=== PATIENT | male | born 1980 | race Caucasian/White ===

== ENCOUNTER 2021-12-24 12:59 | Emergency (ER) | payer OTHER ==
[2021-12-24 13:17] VITALS: TEMP 97.8
[2021-12-24] MEDS ORDERED: KETOROLAC 15 MG/ML 1 ML VIAL IVP STA (13:48)
[2021-12-24] MEDS ORDERED: SODIUM CHLORIDE 0.9% 1,000 ML IV STA (13:48)
[2021-12-24] MEDS ORDERED: MORPHINE SULFATE 2 MG/ML SYRINGE IVP STA (13:48)
--- NOTE | 2021-12-24 14:11 | ED ---
Abdominal Pain HPI - General Chief Complaint: Abdominal Pain Stated Complaint: abd pain Time Seen by Provider: 12/24/21 13:31 Source: patient, RN notes reviewed Mode of arrival: ambulatory Limitations: no limitations - History of Present Illness Initial Comments: This is a 41-year-old male who presents to the emergency department for abdominal pain. Abdominal pain has been present for approximately one week. He does believe that the pain may worsen with eating. He has had intermittent associated nausea, vomiting, and diarrhea. The pain is described as being across the center of his abdomen. He did have an episode of vomiting this morning, and believes that there may have been blood in it. He has never had symptoms like this in the past, and states that it has gotten to the point where he is in tears. He also feels very fatigued as a result of all of his symptoms. Denies any fevers, chills, sore throat, cough, dyspnea, chest pain, palpitations, back pain, or headaches. MD Complaint: abdominal pain Onset/Timin -: week(s) Location: periumbilical - Related Data Home Medications Medication Instructions Recorded Confirmed Dextroamphetamine/Amphetamine 10 mg PO TID 12/24/21 12/24/21 [Adderall] HYDROcodone/APAP 10-325MG [[place] 1 tab PO 5XD PRN 12/24/21 12/24/21 10-325] Ibuprofen [Motrin] 800 mg PO TID PRN 12/24/21 12/24/21 Previous Rx's Medication Instructions Recorded Famotidine [Zantac-360 10 mg PO QAM #20 tablet 12/24/21 (Famotidine)] Metoclopramide [Reglan] 5 mg PO ACHS PRN #20 tab 12/24/21 Ondansetron Odt [Zofran Odt] 4 mg PO Q8HR PRN #20 tab 12/24/21 Allergies Allergy/AdvReac Type Severity Reaction Status Date / Time No Known Allergies Allergy Verified 12/24/21 14:57 Review of Systems ROS Statement: Those systems with pertinent positive or pertinent negative responses have been documented in the HPI. ROS Other: All systems not noted in ROS Statement are negative. Past Medical History Past Medical History: No Reported History History of Any Multi-Drug Resistant Organisms: None Reported Past Surgical History: No Surgical Hx Reported Past Psychological History: No Psychological Hx Reported Smoking Status: Current every day smoker Past Alcohol Use History: None Reported Past Drug Use History: None Reported General Exam Limitations: no limitations General appearance: alert, in distress Head exam: Present: atraumatic, normocephalic, normal inspection ENT exam: Present: normal exam, mucous membranes moist Neck exam: Present: normal inspection. Absent: tenderness, meningismus, lymphadenopathy Respiratory exam: Present: normal lung sounds bilaterally. Absent: respiratory distress, wheezes, rales, rhonchi, stridor Cardiovascular Exam: Present: regular rate, normal rhythm, normal heart sounds. Absent: systolic murmur, diastolic murmur, rubs, gallop, clicks GI/Abdominal exam: Present: soft, tenderness (Epigastric, periumbilical ), normal bowel sounds. Absent: distended, guarding, rebound, rigid Neurological exam: Present: alert, oriented X3, CN II-XII intact Psychiatric exam: Present: normal affect, normal mood Skin exam: Present: warm, dry, intact, normal color. Absent: rash Course Vital Signs 12/24/21 12/24/21 12/24/21 13:15 16:33 18:03 Temperature 97.8 F Pulse Rate 76 72 68 Respiratory 16 18 18 Rate Blood Pressure 152/101 141/90 132/92 O2 Sat by Pulse 97 98 98 Oximetry Medical Decision Making - Medical Decision Making This is a 41-year-old male who presents to the emergency department for abdominal pain. Lab work was unremarkable. Symptoms initially improved with Toradol and morphine, however they returned an hour and a half later. Given the patient's duration of symptoms and exquisite tenderness, computed tomography scan of the abdomen and pelvis was obtained. This revealed constipation. Patient was given lactulose and Reglan. Advised the patient that symptoms are related to constipation and possible gastritis/GERD. Prescription for famotidine provided. Advised to take this daily for 2 weeks. Zofran and Reglan prescribed as well. Instructed him to take the Reglan whenever he experiences abdominal pain, and to otherwise take either Reglan or Zofran for nausea and vomiting. Also advised to increase fluid and fiber intake and to take OTC MiraLAX for constipation. Return precautions reviewed in depth, the patient is instructed to return to the emergency department with any new, worsening, or concerning symptoms. Patient verbalized understanding. This case was discussed in detail with the attending ED physician. Presentation, findings, and treatment plan discussed in detail as well. - Lab Data Result diagrams: 12/24/21 Unknown 12/24/21 Unknown Lab Results 12/24/21 12/24/21 12/24/21 Range/Units Unknown Unknown Unknown WBC 9.5 (3.8-10.6) k/uL RBC 4.86 (4.30-5.90) m/uL Hgb 16.3 (13.0-17.5) gm/dL Hct 48.3 (39.0-53.0) % MCV 99.4 (80.0-100.0) fL MCH 33.5 (25.0-35.0) pg MCHC 33.7 (31.0-37.0) g/dL RDW 12.5 (11.5-15.5) % Plt Count 336 (150-450) k/uL MPV 7.8 Neutrophils % 78 % Lymphocytes % 14 % Monocytes % 5 % Eosinophils % 2 % Basophils % 0 % Neutrophils # 7.4 (1.3-7.7) k/uL Lymphocytes # 1.3 (1.0-4.8) k/uL Monocytes # 0.5 (0-1.0) k/uL Eosinophils # 0.2 (0-0.7) k/uL Basophils # 0.0 (0-0.2) k/uL Sodium 139 (137-145) mmol/L Potassium 4.3 (3.5-5.1) mmol/L Chloride 107 (98-107) mmol/L Carbon Dioxide 24 (22-30) mmol/L Anion Gap 8 mmol/L BUN 10 (9-20) mg/dL Creatinine 0.92 (0.66-1.25) mg/dL Est GFR (CKD-EPI)AfAm >90 (>60 ml/min/1.73 sqM) Est GFR (CKD-EPI)NonAf >90 (>60 ml/min/1.73 sqM) Glucose 118 H (74-99) mg/dL Calcium 9.6 (8.4-10.2) mg/dL Total Bilirubin 0.3 (0.2-1.3) mg/dL AST 20 (17-59) U/L ALT 14 (4-49) U/L Alkaline Phosphatase 88 (38-126) U/L Troponin I (0.000-0.034) ng/mL Total Protein 7.0 (6.3-8.2) g/dL Albumin 4.5 (3.5-5.0) g/dL Amylase 39 (30-110) U/L Lipase 62 (23-300) U/L Urine Color Yellow Urine Appearance Clear (Clear) Urine pH 6.0 (5.0-8.0) Ur Specific [place] 1.015 (1.001-1.035) Urine Protein Negative (Negative) Urine Glucose (UA) Negative (Negative) Urine Ketones Negative (Negative) Urine Blood Negative (Negative) Urine Nitrite Negative (Negative) Urine Bilirubin Negative (Negative) Urine Urobilinogen <2.0 (<2.0) mg/dL Ur Leukocyte Esterase Trace H (Negative) Urine RBC 2 (0-5) /hpf Urine WBC 6 H (0-5) /hpf Urine Mucus Rare H (None) /hpf Coronavirus (PCR) (Not Detectd) Influenza Type A RNA (Not Detectd) Influenza Type B (PCR) (Not Detectd) 12/24/21 12/24/21 12/24/21 Range/Units Unknown Unknown Unknown WBC (3.8-10.6) k/uL RBC (4.30-5.90) m/uL Hgb (13.0-17.5) gm/dL Hct (39.0-53.0) % MCV (80.0-100.0) fL MCH (25.0-35.0) pg MCHC (31.0-37.0) g/dL RDW (11.5-15.5) % Plt Count (150-450) k/uL MPV Neutrophils % % Lymphocytes % % Monocytes % % Eosinophils % % Basophils % % Neutrophils # (1.3-7.7) k/uL Lymphocytes # (1.0-4.8) k/uL Monocytes # (0-1.0) k/uL Eosinophils # (0-0.7) k/uL Basophils # (0-0.2) k/uL Sodium (137-145) mmol/L Potassium (3.5-5.1) mmol/L Chloride (98-107) mmol/L Carbon Dioxide (22-30) mmol/L Anion Gap mmol/L BUN (9-20) mg/dL Creatinine (0.66-1.25) mg/dL Est GFR (CKD-EPI)AfAm (>60 ml/min/1.73 sqM) Est GFR (CKD-EPI)NonAf (>60 ml/min/1.73 sqM) Glucose (74-99) mg/dL Calcium (8.4-10.2) mg/dL Total Bilirubin (0.2-1.3) mg/dL AST (17-59) U/L ALT (4-49) U/L Alkaline Phosphatase (38-126) U/L Troponin I <0.012 (0.000-0.034) ng/mL Total Protein (6.3-8.2) g/dL Albumin (3.5-5.0) g/dL Amylase (30-110) U/L Lipase (23-300) U/L Urine Color Urine Appearance (Clear) Urine pH (5.0-8.0) Ur Specific [place] (1.001-1.035) Urine Protein (Negative) Urine Glucose (UA) (Negative) Urine Ketones (Negative) Urine Blood (Negative) Urine Nitrite (Negative) Urine Bilirubin (Negative) Urine Urobilinogen (<2.0) mg/dL Ur Leukocyte Esterase (Negative) Urine RBC (0-5) /hpf Urine WBC (0-5) /hpf Urine Mucus (None) /hpf Coronavirus (PCR) Not Detected (Not Detectd) Influenza Type A RNA Not Detected (Not Detectd) Influenza Type B (PCR) Not Detected (Not Detectd) - Radiology Data Radiology results: report reviewed, image reviewed Disposition Clinical Impression: Abdominal pain of unknown etiology Disposition: HOME SELF-CARE Instructions (If sedation given, give patient instructions): Abdominal Pain (ED) Additional Instructions: Return to the emergency department with any new, worsening, or concerning symptoms. Take the Zantac every morning for 2 weeks. If you have nausea and vomiting take the Zofran or Reglan, and when you have abdominal pain take the Reglan. Increase dietary fiber and remain well hydrated. Contact gastroenterology as listed below for follow-up appointment if symptoms do not improve. Prescriptions: Metoclopramide [Reglan] 5 mg PO ACHS PRN #20 tab PRN Reason: Nausea And Vomiting Famotidine [Zantac-360 (Famotidine)] 10 mg PO QAM #20 tablet Ondansetron Odt [Zofran Odt] 4 mg PO Q8HR PRN #20 tab PRN Reason: Nausea And Vomiting Is patient prescribed a controlled substance at d/c from ED?: No Referrals: None,Stated [Primary Care Provider] - 1-2 days Maria Victoria Bajwa MD [STAFF PHYSICIAN] - 1-2 days
[2021-12-24 14:44] LABS: Basophils % (A) 0 %; Eosinophils # (A) 0.2 k/uL (0-0.7); Eosinophils % (A) 2 %; HCT 48.3 % (39.0-53.0); HGB 16.3 gm/dL (13.0-17.5); Lymphocytes # (A) 1.3 k/uL (1.0-4.8); Lymphocytes % (A) 14 %; MCH 33.5 pg (25.0-35.0); MCHC 33.7 g/dL (31.0-37.0); MCV 99.4 fL (80.0-100.0); Mean Platelet Volume 7.8; Monocytes # (A) 0.5 k/uL (0-1.0); Monocytes % (A) 5 %; Neutrophils # (A) 7.4 k/uL (1.3-7.7); Neutrophils % (A) 78 %; Platelet Count 336 k/uL (150-450); RBC 4.86 m/uL (4.30-5.90); RDW 12.5 % (11.5-15.5); WBC 9.5 k/uL (3.8-10.6)
[2021-12-24 14:55] LABS: ALT 14 U/L (4-49); AST 20 U/L (17-59); African American GFR (CKD) >90 (>60 ml/min/1.73 sqM); Albumin 4.5 g/dL (3.5-5.0); Alkaline Phosphatase 88 U/L (38-126); Amylase 39 U/L (30-110); Anion Gap 8 mmol/L; Blood Urea Nitrogen 10 mg/dL (9-20); Calcium 9.6 mg/dL (8.4-10.2); Carbon Dioxide 24 mmol/L (22-30); Chloride 107 mmol/L (98-107); Glucose 118 mg/dL (74-99); Lipase 62 U/L (23-300); Non-African American GFR(CKD) >90 (>60 ml/min/1.73 sqM); Potassium 4.3 mmol/L (3.5-5.1); Sodium 139 mmol/L (137-145); Total Bilirubin 0.3 mg/dL (0.2-1.3)
[2021-12-24 15:10] LABS: Appearance,Urine Clear (Clear); Bilirubin,Urine Negative (Negative); Blood,Urine Negative (Negative); Color,Urine Yellow; Glucose,Urine (UA) Negative (Negative); Ketones,Urine Negative (Negative); Leukocyte Esterase,Urine Trace (Negative); Mucus,Urine Rare /hpf; Nitrite,Urine Negative (Negative); Protein,Urine Negative (Negative); RBC,Urine 2 /hpf (0-5); Specific Gravity,Urine 1.015 (1.001-1.035); Urobilinogen,Urine <2.0 mg/dL (<2.0); WBC,Urine 6 /hpf (0-5)
--- NOTE | 2021-12-24 15:37 | CT ---
EXAMINATION TYPE: CT abdomen pelvis w con DATE OF EXAM: 12/24/2021 COMPARISON: None available HISTORY: abdominal pain CT DLP: 718.2 mGycm Automated exposure control for dose reduction was used. TECHNIQUE: Helical acquisition of images was performed from the lung bases through the pelvis. CONTRAST: Performed without Oral Contrast and with IV Contrast, patient injected with 100 mL of Isovue 300. FINDINGS: LUNG BASES: No significant abnormality is appreciated. LIVER/GB: No significant abnormality is appreciated. PANCREAS: No significant abnormality is seen. SPLEEN: No significant abnormality is seen. ADRENALS: No significant abnormality is seen. KIDNEYS: Bilateral nonobstructing renal calculi measuring up to 3 mm on the right side and 4 mm on th e left side. No hydroureter or hydronephrosis. FREE AIR: No free air is visualized. RETROPERITONEAL ADENOPATHY: None visualized REPRODUCTIVE ORGANS: No significant abnormality is seen URINARY BLADDER: Nondistended. PELVIC ADENOPATHY: No pathologically enlarged pelvic lymph nodes. OSSEOUS STRUCTURES: No gross aggressive bone lesion. BOWEL: Unremarkable nondistended stomach and duodenum. Suboptimal assessment of the small and large bowel. No evidence for small bowel obstruction. Fecal loading of the colon. Normal appendix. OTHER: Unremarkable abdominal aorta. Retroaortic left renal vein. No sizable free fluid. IMPRESSION: Bilateral nonobstructing renal calculi. Fecal loading of the colon. No other definite acute abnormali ty seen in the abdomen or the pelvis.
[2021-12-24] MEDS ORDERED: METOCLOPRAMIDE 5 MG/ML 2 ML VIAL IVP STA (16:01)
[2021-12-24] MEDS ORDERED: LACTULOSE 20 GM/30 ML CUP PO ONE (16:01)
[2021-12-24 16:34] VITALS: RESP 18
[2021-12-24 18:04] VITALS: BP 132/92; PULSE 68
== END 2021-12-24 18:04 | disposition home or self-care (01) ==
LOC: EC 12:59
DX: R10.13 Epigastric pain (principal); R10.33 Periumbilical pain; Z20.822 Contact with and (suspected) exposure to COVID-19; F17.200 Nicotine dependence, unspecified, uncomplicated
CPT/HCPCS: 99284; 96374; 96375 ×2; 96361 ×3; 36415; 80053; 82150; 83690; 84484; 85025; 81001; 87502; 87635; 74177; J2765; J2270; J1885; Q9967

== ENCOUNTER 2024-12-08 14:37 | Emergency (ER) | payer OTHER ==
[2024-12-08 14:48] VITALS: TEMP 98.3
[2024-12-08] MEDS: DEXAMETHASONE SOD PHOSPHATE 10 MG/ML 1 ML VIAL IVP STA (16:47)
[2024-12-08] MEDS: METOCLOPRAMIDE 5 MG/ML 2 ML VIAL IVP STA (16:47)
[2024-12-08] MEDS: diphenhydrAMINE 50 MG/ML 1 ML VIAL IVP STA (16:47)
[2024-12-08] MEDS: SODIUM CHLORIDE 0.9% 1,000 ML IV STA (16:47)
[2024-12-08] MEDS: MAGNESIUM SULFATE-D5W PMX 1 GM in DEXTROSE/WATER 1 100ML.BAG IVPB ONE (16:48)
[2024-12-08 16:51] VITALS: RESP 17
[2024-12-08 16:57] LABS: Basophils # (A) 0.07 10*3/uL (0.00-0.10); Basophils % (A) 0.9 %; Eosinophils # (A) 0.09 10*3/uL (0.04-0.35); Eosinophils % (A) 1.2 %; HCT 44.6 % (39.6-50.0); HGB 15.7 g/dL (13.0-17.0); Lymphocytes # (A) 2.26 10*3/uL (0.90-5.00); Lymphocytes % (A) 30.5 %; MCH 31.5 pg (27.0-32.0); MCHC 35.2 g/dL (32.0-37.0); MCV 89.4 fL (80.0-97.0); Monocytes # (A) 0.66 10*3/uL (0.20-1.00); Monocytes % (A) 8.9 %; Neutrophils % (A) 58.1 %; Platelet Count 338 10*3/uL (140-440); RBC 4.99 10*6/uL (4.40-5.60); RDW 11.9 % (11.5-14.5); WBC 7.41 10*3/uL (4.50-10.00)
[2024-12-08 17:12] LABS: ALT 45 U/L (4-49); AST 30 U/L (17-59); African American GFR (CKD) >90 (>60 ml/min/1.73 sqM); Albumin 4.8 g/dL (3.5-5.0); Alkaline Phosphatase 86 U/L (38-126); Anion Gap 8 mmol/L; Blood Urea Nitrogen 14 mg/dL (9-20); Calcium 9.6 mg/dL (8.4-10.2); Carbon Dioxide 29 mmol/L (22-30); Chloride 103 mmol/L (98-107); Glucose 95 mg/dL (74-99); Non-African American GFR(CKD) 87 (>60 ml/min/1.73 sqM); Potassium 4.2 mmol/L (3.5-5.1); Sodium 140 mmol/L (137-145); Total Bilirubin 0.5 mg/dL (0.2-1.3); Total Protein 7.3 g/dL (6.3-8.2)
--- NOTE | 2024-12-08 17:41 | CT ---
EXAMINATION TYPE: CT brain wo con DATE OF EXAM: 12/08/2024 5:06 PM COMPARISON: None. CLINICAL INDICATION: Male, 44 years old with history of Headache, HEADACHE TECHNIQUE: Brain: Axial CT images of the brain were obtained with coronal and sagittal reformats created and rev iewed. Contrast used: None. Oral contrast used: None. CT DLP: 1240.4 mGycm, Automated exposure control for dose reduction was used. FINDINGS: Brain: Extra-axial spaces: No abnormal extra-axial fluid collections. Ventricular system: Within normal limits Cerebral parenchyma: No acute intraparenchymal hemorrhage or mass effect. The kimbrough-white junction is well differentiated. Cerebellum: Unremarkable. Mass effect: No evidence of midline shift. Intracranial vasculature: unremarkable Soft tissues: Normal. Calvarium/osseous structures: No depressed skull fracture. Paranasal sinuses and mastoid air cells: Mild scattered paranasal sinus disease. Visualized orbits: Orbital contents are intact. IMPRESSION: No acute intracranial process. [facility], , 12/08/2024 5:38 PM
--- NOTE | 2024-12-08 17:46 | ED ---
Headache HPI - General Chief Complaint: Headache Stated Complaint: Abn BP Time Seen by Provider: 12/08/24 14:50 Mode of arrival: ambulatory Limitations: no limitations - History of Present Illness Initial Comments: 44-year-old male with no reported past medical history who presents to the emergency department after he has had a headache for the past 10 days. States i ts located on the right temporal region and behind his right eye. He denies any visual disturbance. No fevers. No head injury. Denies neck stiffness. He went into his primary care and they found that he had significant elevated blood pressures and therefore sent him to the hospital. He denies any lateralizing weakness. No speech difficulties. No other alleviating, precipitating or modifying factors - Related Data Home Medications Medication Instructions Recorded Confirmed Dextroamphetamine/Amphetamine 10 mg PO TID 12/24/21 12/24/21 [Adderall] HYDROcodone/APAP 10-325MG [[place] 1 tab PO 5XD PRN 12/24/21 12/24/21 10-325] Ibuprofen [Motrin] 800 mg PO TID PRN 12/24/21 12/24/21 Previous Rx's Medication Instructions Recorded Famotidine [Zantac-360 10 mg PO QAM #20 tablet 12/24/21 (Famotidine)] Metoclopramide [Reglan] 5 mg PO ACHS PRN #20 tab 12/24/21 Ondansetron Odt [Zofran Odt] 4 mg PO Q8HR PRN #20 tab 12/24/21 amLODIPine [Norvasc] 5 mg PO DAILY #30 tab 12/08/24 Allergies Allergy/AdvReac Type Severity Reaction Status Date / Time No Known Allergies Allergy Verified 12/24/21 14:57 Review of Systems ROS Statement: Those systems with pertinent positive or pertinent negative responses have been documented in the HPI. ROS Other: All systems not noted in ROS Statement are negative. Past Medical History Past Medical History: No Reported History History of Any Multi-Drug Resistant Organisms: None Reported Past Surgical History: No Surgical Hx Reported, Adenoidectomy, Hernia Repair, Tonsillectomy Past Psychological History: No Psychological Hx Reported, ADD/ADHD Smoking Status: Current every day smoker Past Alcohol Use History: None Reported Past Drug Use History: None Reported General Exam Limitations: no limitations General appearance: alert, in no apparent distress Head exam: Present: atraumatic, normocephalic, normal inspection Eye exam: Present: normal appearance, PERRL, EOMI. Absent: scleral icterus, conjunctival injection, periorbital swelling ENT exam: Present: normal exam, mucous membranes moist Neck exam: Present: normal inspection. Absent: tenderness, meningismus, lymphadenopathy Respiratory exam: Present: normal lung sounds bilaterally. Absent: respiratory distress, wheezes, rales, rhonchi, stridor Cardiovascular Exam: Present: regular rate, normal rhythm, normal heart sounds. Absent: systolic murmur, diastolic murmur, rubs, gallop, clicks GI/Abdominal exam: Present: soft, normal bowel sounds. Absent: distended, tenderness, guarding, rebound, rigid Extremities exam: Present: normal inspection, full ROM, normal capillary refill. Absent: tenderness, pedal edema, joint swelling, calf tenderness Back exam: Present: normal inspection Neurological exam: Present: alert, oriented X3, CN II-XII intact Psychiatric exam: Present: normal affect, normal mood Skin exam: Present: warm, dry, intact, normal color. Absent: rash Course Vital Signs 12/08/24 12/08/24 12/08/24 14:45 16:50 18:00 Temperature 98.3 F Pulse Rate 74 64 66 Respiratory 16 17 17 Rate Blood Pressure 213/136 210/138 183/132 O2 Sat by Pulse 98 98 100 Oximetry 12/08/24 18:21 Temperature Pulse Rate 70 Respiratory 17 Rate Blood Pressure 167/114 O2 Sat by Pulse 100 Oximetry Medical Decision Making - Medical Decision Making Was pt. sent in by a medical professional or institution (Dr. PA, PINION SORTER, urgent care, hospital, or skilled nursing...) When possible be specific @ -Patient sent in from his primary care office Did you speak to anyone other than the patient for history (EMS, parent, family, police, friend...)? What history was obtained from this source @ -No Did you review nursing and triage notes (agree or disagree)? Why? @ -I reviewed and agree with nursing and triage notes Were old charts reviewed (outside hosp., previous admission, EMS record, old EKG, old radiological studies, urgent care reports/EKG's, skilled nursing records)? Report findings @ -No old charts were reviewed Differential Diagnosis (chest pain, altered mental status, abdominal pain women, abdominal pain men, vaginal bleeding, weakness, fever, dyspnea, syncope, headache, dizziness, GI bleed, back pain, seizure, CVA, palpatations, mental health, musculoskeletal)? @ -Differential Headache: Migraine, tension, cluster, carbon monoxide, central venous thrombosis, pension karma temporal arteritis, acute closure glaucoma, intercranial hemorrhage, mastoiditis, sinusitis, head injury, this is not meant to be an all-inclusive list. EKG interpreted by me (3pts min.). @ -Yes and demonstrates sinus bradycardia with a rate of 59. NH interval 150. QRS 92. QTc 397. No acute ST segment elevations or depressions X-rays interpreted by me (1pt min.). @ -None done CT interpreted by me (1pt min.). @ -Yes which demonstrates no acute process U/S interpreted by me (1pt. min.). @ -None done What testing was considered but not performed or refused? (CT, X-rays, U/S, labs)? Why? @ -None What meds were considered but not given or refused? Why? @ -None Did you discuss the management of the patient with other professionals (professionals i.e. , PA, [facility] SORTER, lab, RT, psych nurse, social science teacher, websphere portal architect, teacher, interface control officer, corrections caseworker)? Give summary @ -No Was smoking cessation discussed for >3mins.? @ -No Was critical care preformed (if so, how long)? @ -No Were there social determinants of health that impacted care today? How? (Homelessness, low income, unemployed, alcoholism, drug addiction, transportation, low edu. Level, literacy, decrease access to med. care, [facility], rehab)? @ -No Was there de-escalation of care discussed even if they declined (Discuss DNR or withdrawal of care, Hospice)? DNR status @ -No What co-morbidities impacted this encounter? (DM, HTN, Smoking, COPD, CAD, Cancer, CVA, ARF, Chemo, Hep., AIDS, mental health diagnosis, sleep apnea, morbi d obesity)? @ -None Was patient admitted / discharged? Hospital course, mention meds given and rout e, prescriptions, significant lab abnormalities, going to OR and other pertinent info. @ -Upon arrival patient seen and evaluated in bed 30. Thorough history and physical exam was performed. IV access was established. Laboratory studies are conducted. Patient was given migraine cocktail as well as hydralazine for blood pressure control. CT is negative. Patient reevaluated and reports that h is symptoms are improved. He has no temporal tenderness to palpation. No visual disturbance. Patient will be initiated on blood pressure medications at home. He is to buy a blood pressure cuff, measure his blood pressure 3 times a day and keep a log. He is to start taking the amlodipine if his blood pressure remains over 160/90 at home. He needs to follow-up with his doctor to ensure that the blood pressure medication he is on is working and is the correct dose. Return for any new or worsening symptoms. Patient agreeable to plan he was discharged in stable condition Undiagnosed new problem with uncertain prognosis? @ -No Drug Therapy requiring intensive monitoring for toxicity (Heparin, Nitro, Insulin, Cardizem)? @ -No Were any procedures done? @ -No Diagnosis/symptom? @ -Acute migraine, accelerated hypertension Acute, or Chronic, or Acute on Chronic? @ -Acute Uncomplicated (without systemic symptoms) or Complicated (systemic symptoms)? @ -Complicated Side effects of treatment? @ -No Exacerbation, Progression, or Severe Exacerbation? @ -No Poses a threat to life or bodily function? How? (Chest pain, [place], [place], pneumonia, PE, COPD, DKA, ARF, appy, cholecystitis, CVA, Diverticulitis, Homicidal, Suicidal, threat to staff... and all critical care pts) @ -No - Lab Data Result diagrams: 12/08/24 16:46 12/08/24 16:46 Lab Results 12/08/24 12/08/24 12/08/24 Range/Units 16:46 16:46 16:46 WBC 7.41 (4.50-10.00) 10*3/uL RBC 4.99 (4.40-5.60) 10*6/uL Hgb 15.7 (13.0-17.0) g/dL Hct 44.6 (39.6-50.0) % MCV 89.4 (80.0-97.0) fL MCH 31.5 (27.0-32.0) pg MCHC 35.2 (32.0-37.0) g/dL Plt Count 338 (140-440) 10*3/uL MPV 10.0 (9.5-12.2) fL Immature Gran % (Auto) 0.4 % Neutrophils % 58.1 % Lymphocytes % 30.5 % Monocytes % 8.9 % Eosinophils % 1.2 % Basophils % 0.9 % Immature Gran # 0.03 (0.00-0.04) 10*3/uL Neutrophils # 4.30 (1.80-7.70) 10*3/uL Lymphocytes # 2.26 (0.90-5.00) 10*3/uL Monocytes # 0.66 (0.20-1.00) 10*3/uL Eosinophils # 0.09 (0.04-0.35) 10*3/uL Basophils # 0.07 (0.00-0.10) 10*3/uL Sodium 140 (137-145) mmol/L Potassium 4.2 (3.5-5.1) mmol/L Chloride 103 (98-107) mmol/L Carbon Dioxide 29 (22-30) mmol/L Anion Gap 8 mmol/L BUN 14 (9-20) mg/dL Creatinine 1.04 (0.66-1.25) mg/dL Est GFR (CKD-EPI)AfAm >90 (>60 ml/min/1.73 sqM) Est GFR (CKD-EPI)NonAf 87 (>60 ml/min/1.73 sqM) Glucose 95 (74-99) mg/dL Calcium 9.6 (8.4-10.2) mg/dL Total Bilirubin 0.5 (0.2-1.3) mg/dL AST 30 (17-59) U/L ALT 45 (4-49) U/L Alkaline Phosphatase 86 (38-126) U/L Troponin I <0.012 (0.000-0.034) ng/mL Total Protein 7.3 (6.3-8.2) g/dL Albumin 4.8 (3.5-5.0) g/dL Disposition Clinical Impression: Headache, Hypertension Disposition: HOME SELF-CARE Condition: Stable Instructions (If sedation given, give patient instructions): Acute Headache (ED), Hypertension (ED) Additional Instructions: Please purchase a blood pressure cuff. Check your blood pressure twice daily and keep a log. Take the blood pressure medication that I prescribe if your blood pressure is greater than 160 systolic starting tomorrow. Talk to your doctor about your blood pressure readings on this medication to ensure that it is improving your blood pressure as you may need some modifications to your prescription. Talk to Dr. Valdivia about the Adderall as this is not a good medication to take when you have high blood pressure. Return for any new or worsening symptoms Prescriptions: amLODIPine [Norvasc] 5 mg PO DAILY #30 tab Is patient prescribed a controlled substance at d/c from ED?: No Referrals: Timothy Lama MD [Primary Care Provider] - 1-2 days Time of Disposition: 19:02
[2024-12-08] MEDS: hydrALAZINE HCL 20 MG/ML 1 ML VIAL IVP STA (17:59)
[2024-12-08 18:22] VITALS: BP 167/114; PULSE 70
[2024-12-08] MEDS: KETOROLAC 15 MG/ML 1 ML VIAL IVP STA (19:31)
== END 2024-12-08 19:37 | disposition home or self-care (01) ==
LOC: EC 14:37
DX: G43.909 Migraine, unspecified, not intractable, without status migrainosus (principal); I10 Essential (primary) hypertension; F17.200 Nicotine dependence, unspecified, uncomplicated
CPT/HCPCS: 36415; 80053; 84484; 85025; 70450; 99284; 96365; 96366 ×2; 96375; J0360; J1200; J1100; J2765; J3475; J1885

== ENCOUNTER 2025-01-23 13:18 | Emergency (ER) | payer OTHER ==
--- NOTE | 2025-01-23 14:09 | ED ---
General Adult HPI - General Chief complaint: Psychiatric Symptoms Stated complaint: SI Time Seen by Provider: 01/23/25 14:00 Source: patient, police, EMS Mode of arrival: EMS Limitations: no limitations - History of Present Illness Initial comments: 45-year-old male presents emergency department. Petition for suicidal ideation. Made suicidal statements via text yesterday to his . Police were called and petition the patient and his he did have some self-injuring behavior as well. Had a superficial cut to the left anterior forearm. States he is not feeling suicidal now but states that yesterday he was tired of failure. Feels like he is depressed. Has been ongoing for weeks. Denies any homicidal ideations, intents, plans. Denies any hallucinations. Denies any drug or alcohol use. Presents for further evaluation at this time. - Related Data Home Medications Medication Instructions Recorded Confirmed Dextroamphetamine/Amphetamine 10 mg PO TID 12/24/21 01/23/25 [Adderall] Chlorthalidone 50 mg PO DAILY 01/23/25 01/23/25 hydrALAZINE HCL [Apresoline] 25 mg PO BID 01/23/25 01/23/25 oxyCODONE-APAP 10-325MG [Percocet 1 tab PO TID 01/23/25 01/23/25 10-325 mg] Allergies Allergy/AdvReac Type Severity Reaction Status Date / Time No Known Allergies Allergy Verified 01/23/25 14:56 Review of Systems ROS Statement: Those systems with pertinent positive or pertinent negative responses have been documented in the HPI. Review of Systems: CONST: Denies fever EYES: Denies blurry vision ENT: Denies nasal congestion C/V: Denies Chest pain RESP: Denies shortness of breath GI: Denies abdominal pain : Denies dysuria SKIN: Denies rash. MSK: Denies joint pain. NEURO: Denies headache ROS Other: All systems not noted in ROS Statement are negative. Past Medical History Past Medical History: Hypertension History of Any Multi-Drug Resistant Organisms: None Reported Past Surgical History: No Surgical Hx Reported, Adenoidectomy, Hernia Repair, Tonsillectomy Past Psychological History: No Psychological Hx Reported, ADD/ADHD Smoking Status: Current every day smoker Past Alcohol Use History: None Reported Past Drug Use History: None Reported General Exam - General Exam Comments Initial Comments: General: Appears in no obvious acute distress. HEAD: Normal with no signs of head trauma. EYES: EOMI. ENT: Hearing grossly intact. RESPIRATORY: No respiratory distress. C/V: Regular rate and rhythm. ABD: Abdomen is nondistended. EXT: No obvious deformity. SKIN: Superficial skin abrasion to the anterior left forearm. NEURO: Alert and oriented. Limitations: no limitations Course Vital Signs 01/23/25 13:24 Temperature 98.9 F Pulse Rate 81 Respiratory 20 Rate Blood Pressure 179/114 O2 Sat by Pulse 99 Oximetry Medical Decision Making - Medical Decision Making Was pt. sent in by a medical professional or institution (, PA, GEAR SETTER, urgent care, hospital, or senior living...) When possible be specific @ -No Did you speak to anyone other than the patient for history (EMS, parent, family, police, friend...)? What history was obtained from this source @ -Please offer sooner spoke to me regarding the petition and reason for bring the patient for evaluation. Did you review nursing and triage notes (agree or disagree)? Why? @ -I reviewed and agree with nursing and triage notes Were old charts reviewed (outside hosp., previous admission, EMS record, old EKG, old radiological studies, urgent care reports/EKG's, senior living records)? Report findings @ -Reviewed the patient's petition, stated his suicidal ideations and statements. Differential Diagnosis (chest pain, altered mental status, abdominal pain women, abdominal pain men, vaginal bleeding, weakness, fever, dyspnea, syncope, headache, dizziness, GI bleed, back pain, seizure, CVA, palpatations, mental health, musculoskeletal)? @ -Differential Mental Health Depression, anxiety, bipolar, psychosis, schizophrenia, borderline personality, situational depression, adjustment disorder, behavioral disorder, brain tumor, malingering, substance abuse, encephalopathy, medication reaction, dementia, hypothyroidism, degenerative neurologic disorder, lupus.... This is not meant to be all-inclusive list EKG interpreted by me (3pts min.). @ -None done X-rays interpreted by me (1pt min.). @ -None done CT interpreted by me (1pt min.). @ -None done U/S interpreted by me (1pt. min.). @ -None done What testing was considered but not performed or refused? (CT, X-rays, U/S, labs)? Why? @ -None What meds were considered but not given or refused? Why? @ -None Did you discuss the management of the patient with other professionals (professionals i.e. , PA, GEAR SETTER, lab, RT, psych nurse, social services manager, formation fracturing operator, teacher, executive officer, family preservation caseworker)? Give summary @ -No Was smoking cessation discussed for >3mins.? @ -No Was critical care preformed (if so, how long)? @ -No Were there social determinants of health that impacted care today? How? (Homelessness, low income, unemployed, alcoholism, drug addiction, transportation, low edu. Level, literacy, decrease access to med. care, retirement, rehab)? @ -No Was there de-escalation of care discussed even if they declined (Discuss DNR or withdrawal of care, Hospice)? DNR status @ -No What co-morbidities impacted this encounter? (DM, HTN, Smoking, COPD, CAD, Cancer, CVA, ARF, Chemo, Hep., AIDS, mental health diagnosis, sleep apnea, morbid obesity)? @ -None Was patient admitted / discharged? Hospital course, mention meds given and route, prescriptions, significant lab abnormalities, going to OR and other pertinent info. @ -Based on the patient's presentation and physical exam, presents emergency department for psychiatric evaluation. Petition states that he was making suicidal statements to his . Was brought in by police and petition. Has a superficial left anterior forearm abrasion that does not require any treatment. He is up-to-date on tetanus. Vitals are within acceptable limits. BAT is 0. UDS is pending. Suicide precautions ordered. Sitter ordered. At this time, patient is medically cleared for evaluation by psychiatry. Disposition pending psychiatric evaluation. EPS notified of the consult. EPS Clau evaluate the patient and after discussion patient does meet inpatient psychiatric criteria. Patient will be admitted to inpatient psychiatry. Clinical certificate completed by myself. Undiagnosed new problem with uncertain prognosis? @ -No Drug Therapy requiring intensive monitoring for toxicity (Heparin, Nitro, Insulin, Cardizem)? @ -No Were any procedures done? @ -No Diagnosis/symptom? @ -Suicidal behavior, depression Acute, or Chronic, or Acute on Chronic? @ -Acute Uncomplicated (without systemic symptoms) or Complicated (systemic symptoms)? @ -Complicated Side effects of treatment? @ -None Exacerbation, Progression, or Severe Exacerbation] @ -No Poses a threat to life or bodily function? @ -Yes Disposition Clinical Impression: Depression, Suicidal behavior Disposition: TRANSFER TO PSYCH HOSP/UNIT Condition: Stable Referrals: Nonstaff,Physician [REFERRING] - 1-2 days
[2025-01-23 18:19] LABS: Basophils # (A) 0.04 10*3/uL (0.00-0.10); Basophils % (A) 0.3 %; Eosinophils # (A) 0.04 10*3/uL (0.04-0.35); Eosinophils % (A) 0.3 %; HCT 41.8 % (39.6-50.0); HGB 14.8 g/dL (13.0-17.0); Lymphocytes # (A) 1.36 10*3/uL (0.90-5.00); Lymphocytes % (A) 11.6 %; MCH 31.4 pg (27.0-32.0); MCHC 35.4 g/dL (32.0-37.0); MCV 88.6 fL (80.0-97.0); Monocytes # (A) 0.45 10*3/uL (0.20-1.00); Monocytes % (A) 3.8 %; Neutrophils # (A) 9.81 10*3/uL (1.80-7.70); Neutrophils % (A) 83.7 %; Platelet Count 335 10*3/uL (140-440); RBC 4.72 10*6/uL (4.40-5.60); RDW 11.6 % (11.5-14.5); WBC 11.74 10*3/uL (4.50-10.00)
[2025-01-23 18:29] LABS: ALT 40 U/L (4-49); AST 32 U/L (17-59); African American GFR (CKD) >90 (>60 ml/min/1.73 sqM); Albumin 4.4 g/dL (3.5-5.0); Alkaline Phosphatase 118 U/L (38-126); Anion Gap 11 mmol/L; Blood Urea Nitrogen 8 mg/dL (9-20); Calcium 9.7 mg/dL (8.4-10.2); Carbon Dioxide 25 mmol/L (22-30); Chloride 103 mmol/L (98-107); Glucose 115 mg/dL (74-99); Non-African American GFR(CKD) >90 (>60 ml/min/1.73 sqM); Potassium 3.6 mmol/L (3.5-5.1); Sodium 139 mmol/L (137-145); Total Protein 7.0 g/dL (6.3-8.2)
[2025-01-23] MEDS: ACETAMINOPHEN TAB 325 MG TAB PO STA (19:33)
[2025-01-24] MEDS: oxyCODONE-APAP 10-325MG 1 EACH TAB PO SCH (00:46)
[2025-01-24 03:55] VITALS: PULSE 77; TEMP 98.2
[2025-01-24] MEDS: CHLORTHALIDONE 25 MG TAB PO SCH (09:31)
[2025-01-24] MEDS: ADDERALL 10 MG PO SCH (09:33)
[2025-01-24 12:51] VITALS: BP 142/76; RESP 18
== END 2025-01-24 12:55 ==
LOC: EC 13:18
DX: F32.A Depression, unspecified (principal); R45.851 Suicidal ideations; F17.200 Nicotine dependence, unspecified, uncomplicated
CPT/HCPCS: 36415; 80053; 82075; 85025; 87635; 99285